=== PATIENT | male | born 1940 | race Two or more races ===

== ENCOUNTER 2025-02-06 18:04 | Emergency (ER) | payer MEDICARE, BC, SELFPAY ==
[2025-02-06 18:06] VITALS: BP 139/76; PULSE 60; RESP 18; TEMP 36.6; O2SAT 99
[2025-02-06 18:16] VITALS: PULSE 64; O2SAT 99; BMI 22.2
--- NOTE | 2025-02-06 18:58 | EKG_ITS ---
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
--- NOTE | 2025-02-06 18:58 | XR_ITS ---
Examination: PA chest single view TECHNIQUE: Upright PA chest single view Standing time: February 06, 2025 1909 hours INDICATIONS: Hypotension today FINDINGS: Mild to moderate enlargement left ventricle CABG Mild vascular congestion 12 mm pulmonary nodule left upper lobe No pneumonia or pulmonary edema IMPRESSION: Recommend CT chest without contrast follow-up to confirm 12 mm pulmonary nodule left upper lobe
--- NOTE | 2025-02-06 18:58 | XR_ITS ---
Examination: CT brain head without contrast. 2-D sagittal coronal reconstructions Date and time of exam:February 06, 2025 1917 hours INDICATIONS: Onset dizziness headache today low blood pressure, history diabetes, history stroke CTDI: vol (mGy):53.5 DLP: (mGycm):1086 Technique: Multiple CT axial sections of the brain have been obtained, 5 mm slice thickness. Contrast has not been administered. 2-D sagittal, coronal reconstructions have been obtained Low dose protocols were performed. One or more of the following dose reduction techniques were used; automated exposure control, adjustment of the mA and/or KV according to patient size, use of iterative reconstruction technique. Findings: No significant ventricular enlargement. 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 No mass effect or midline shift Basal cisterns are not remarkable. Fourth ventricle is midline. Cranial vault intact. Impression: Negative for acute hemorrhage, mass effect or midline shift As clinically warranted, brain MRI follow-up would best assess for acute ischemic change
--- NOTE | 2025-02-06 18:58 | XR_ITS ---
Examination: CT cervical spine without contrast 2-D sagittal reconstructions 2-D coronal reconstructions 3-D reconstructions. Exam date and time:February 06, 2025 1917 hours Comparison April 26, 2020 INDICATIONS: Sudden neck pain today CTDI:vol (mGy) 7.78 DLP: (mGycm) 197 Technique: Multiple 2 mm axial sections of the cervical spine have been obtained. The coronal and sagittal reconstructions have been obtained. 3-D reconstructions have been obtained. Low dose protocols were performed. One or more of the following dose reduction techniques were used; automated exposure control, adjustment of the mA and/or KV according to patient size, use of iterative reconstruction technique. Findings: Axial sections demonstrate intact base of the skull. C1 exhibit satisfactory relationship to the odontoid. No acute cervical vertebral body fracture seen. Alignment posterior spinous processes satisfactory. Moderate cervical spondylosis C3-C4 advanced right neural foraminal stenosis Impression: No acute cervical fracture. C3-C4 advanced right neural foraminal stenosis MRI cervical spine without contrast follow up would best assess acquired soft tissue spinal stenosis
--- NOTE | 2025-02-06 18:59 | EDRME_ITS ---
Rapid Medical Screening Exam RME Arrival date/time: 02/06/25 18:04 Chief Complaint: Weakness Vital signs: Vital Signs Temperature 97.9 F 02/06/25 18:06 Pulse Rate 60 02/06/25 18:06 Respiratory Rate 18 02/06/25 18:06 Blood Pressure 139/76 H 02/06/25 18:06 Pulse Oximetry (%) 99 02/06/25 18:06 Oxygen Delivery Method Room Air 02/06/25 18:06 RME Narrative: Patient sent from [facility] for hypotension (bps 80/40s and 60/40s in clinic). Patient woke up this morning c/o dizziness and neck pain. Daughter states he may be dehydrated from frequent BMs.
--- NOTE | 2025-02-06 19:21 | PD.EDWEAK ---
ED Weakness RME/HPI General Chief complaint: Weakness Stated complaint: WEAKNESS Source: patient, family and RN notes reviewed Arrival date/time: 02/06/25 18:04 Mode of arrival: EMS Limitations: no limitations RME / HPI RME / HPI Narrative: Patient sent from [facility] for hypotension (bps 80/40s and 60/40s in clinic). Patient woke up this morning c/o dizziness and neck pain. Daughter states he may be dehydrated from frequent BMs. DR. GOMEZ?S MAIN ED EVALUATION: 84-year-old male with history of Transient Ischemic Attacks (TIA), Myocardial Infarction, Atherosclerotic Heart Disease, Hypertension, Benign Prostatic Hyperplasia, Diabetes Mellitus Type 2, Coronary Artery Bypass Graft and Abdominal Surgery BIB daughter presenting to the emergency department via private auto from [facility] who is presenting for chief/stated complaint of hypotension, dizziness, head, back and neck pain x approximately 12 hours. Patient denies any other associated symptoms or medical complaints. - PMH: Transient Ischemic Attacks (TIA), Myocardial Infarction, Atherosclerotic Heart Disease, Hypertension, Benign Prostatic Hyperplasia, Diabetes Mellitus Type 2 - PSH: Coronary Artery Bypass Graft and Abdominal Surgery - Social history: N/A - Current medications: Reviewed PCP is Dr. Go's office ([facility]). Related Data Home Medications ?Medication ?Instructions ?Recorded ?Confirmed carvedilol 25 mg tablet (Coreg) 25 mg PO BID #0 tabs 11/13/14 02/08/18 finasteride 5 mg tablet (Proscar) 5 mg PO QDAY #0 tabs 11/13/14 02/08/18 metformin 500 mg tablet 500 mg PO TIDWM #0 tabs 11/13/14 02/08/18 (Glucophage) tamsulosin 0.4 mg capsule (Flomax) 0.8 mg PO QDAY ##0 11/13/14 02/08/18 valsartan 160 mg tablet (Diovan) 160 mg PO QPM #0 tabs 11/13/14 02/08/18 aspirin 81 mg tablet,delayed 81 mg PO QDAY ##0 07/07/16 02/08/18 release (Cordelia Low Dose Aspirin) atorvastatin 10 mg tablet (Lipitor) 10 mg PO HS #0 tabs 07/07/16 02/08/18 warfarin 4 mg tablet 4 mg PO QDAY 02/08/18 02/08/18 Previous Rx's ?Medication ?Instructions ?Recorded ondansetron HCl 4 mg tablet 4 mg PO Q6H #20 tabs 06/14/21 (Zofran) Allergies Allergy/AdvReac Type Severity Reaction Status Date / Time NKA* Allergy Uncoded 07/28/23 17:17 Review of Systems Review of Systems Systems Reviewed: All systems reviewed, normal except as documented Narrative Review of Systems: HEENT: Head pain CV: + Hypotension Musc/skel:+ Neck pain, + back pain Neuro: + Dizziness Past Medical History Past Medical History NEUROLOGIC: Positive Neurological Disorders and Transient Ischemic Attacks (TIA) CARDIAC: Positive Cardiac Disorders, Myocardial Infarction, Atherosclerotic Heart Disease and Hypertension GENITOURINARY: Positive Genitourinary Disorders and Benign Prostatic Hyperplasia ENDOCRINE: Positive Endocrine Disorders and Diabetes Mellitus Type 2 Family History FAMILY HISTORY: Positive Family Respiratory Disorders and Family Cardiac Disorders Surgical History SURGICAL: Positive Cardiac Surgery, Coronary Artery Bypass Graft and Abdominal Surgery ED Exam Narrative Physical exam: GENERAL: In general the patient is awake, interactive, in an emergency department gurney. No acute distress. The patient is calm and cooperative. Not agitated. HEAD/EYES/EARS/NOSE/THROAT: normo-cephalic, atraumatic, mucus membranes are moist. No cervical tenderness palpation midline. Supple neck. CARDIOVASCULAR: regular rate and regular rhythm, no murmurs, heart sounds are not distant, strong pulses in all four extremities that are equal and symmetric bilateral upper and lower extremities, normal capillary refill. CHEST/PULMONARY: normal chest rise and fall, good air movement, clear to auscultation bilaterally, normal inspiratory to expiratory ratios without evidence of respiratory distress. ABDOMEN: soft, not tender, no masses appreciated. BACK: normal range of motion without pain. NEUROLOGICAL: cranio-facial features are symmetric, moves all four extremities equally without obvious limitations or weakness. EXTREMITY no pedal edema. No cellulitis. SKIN: warm, dry, well-perfused, no jaundice, no rash. General Limitations: Present no limitations Course Course Course Narrative: Chest X-ray is ordered for determining etiology of diziness. Quality Measures none Orders Category Date Time Status EKG (ED ONLY) *Do not use* NOW Care 02/06/25 18:[address] cervical spine wo con Stat Exams 02/06/25 18:[address] head/brain wo con Stat Exams 02/06/25 18:58 Completed CXR [XR chest 1V] Stat Exams 02/06/25 18:58 Completed EKG (ED Only) Stat Exams 02/06/25 18:58 Draft CBC Stat Lab 02/06/25 19:16 Completed CMP [Comprehensive Metabolic Panel] Stat Lab 02/06/25 19:16 Completed Magnesium Stat Lab 02/06/25 19:16 Completed Troponin I Stat Lab 02/06/25 19:16 Completed UA [Urinalysis] Stat Lab 02/06/25 19:49 Completed Vital Signs Vital signs: Vital Signs Temperature 97.9 F 02/06/25 18:06 Pulse Rate 60 02/06/25 18:06 Respiratory Rate 18 02/06/25 18:06 Blood Pressure 139/76 H 02/06/25 18:06 Pulse Oximetry (%) 99 02/06/25 18:06 Oxygen Delivery Method Room Air 02/06/25 18:06 Procedures -ED EKG Interpretation #1: Date of EK02/06/25 Time of EK:04 Interpretation: Interpreted by me EKG Impression: Normal sinus rhythm Additional EKG comment: No S elevations. No depressions. QTc is normal at 419. Nonspecific ST-T wave change and T wave inversion in aVL. No ST elevation SC. Weakness MDM Narrative MDM Narrative:: Scribe Attestation: Natalie Fonseca am scribing for and in the presence of Dr. Gomez. Provider Notation: Although this document has been carefully reviewed, there may still be some phonetic and other typographical errors. These errors are purely grammatical due to imperfections in the software program and should not be construed in any way to compromise the substance of the patient's medical care during this visit. 84-year-old male with history of Transient Ischemic Attacks (TIA), Myocardial Infarction, Atherosclerotic Heart Disease, Hypertension, Benign Prostatic Hyperplasia, Diabetes Mellitus Type 2, Coronary Artery Bypass Graft and Abdominal Surgery BIB daughter presenting to the emergency department via private auto from [facility] who is presenting for chief/stated complaint of hypotension, dizziness, head, back and neck pain x approximately 12 hours. Patient while in the emergency department has no evidence of dehydration, urine is negative for UTI. His kidney function slightly elevated 1.5-1.9 however this can be followed up as an outpatient. The patient gets followed by Dr. Mckay every 2 weeks and has good follow-up. Patient made aware of the incidental lung nodule. The patient follow-up primary care in the next 6 to 12 months for a repeat x-ray and/or outpatient CAT scan. You are offered a CAT scan here but you have decided you would like to get that as an outpatient. Return precautions were given understood. We discussed the discharge instructions and all questions were asked by the family. Precautions given and understood. DDX: Medication side effects, UTI, Dehydration, Electrolyte Abnormality Patient data External records reviewed:: [facility] previous records (Prior ED records reviewed from 07/28/2023. Patient was seen for hypotension.) Clinical information provided by:: patient Social determinants that could affect healthcare access:: none Patient has the following chronic illnesses:: Transient Ischemic Attacks (TIA), Myocardial Infarction, Atherosclerotic Heart Disease, Hypertension, Benign Prostatic Hyperplasia, Diabetes Mellitus Type 2 How is presenting disease/condition affected by chronic disease/condition?: exacerbated by Evaluation data The following diagnostics were reviewed and interpreted by me:: lab results, radiology exam(s) and EKG tracing(s) (1904: 66 BPM, No S elevations. No depressions. QTc is normal at 419. Nonspecific ST-T wave change and T wave inversion in aVL. No ST elevation SC.) Lab and/or radiology exams considered but not ordered:: None Interpretation Summary: Chest X-Ray Findings: Mild to moderate enlargement left ventricle CABG Mild vascular congestion 12 mm pulmonary nodule left upper lobe No pneumonia or pulmonary edema Impression: Recommend CT chest without contrast follow-up to confirm 12 mm pulmonary nodule left upper lobe Cervical Spine CT Head CT Findings: No significant ventricular enlargement. 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 No mass effect or midline shift Basal cisterns are not remarkable. Fourth ventricle is midline. Cranial vault intact. Impression: Negative for acute hemorrhage, mass effect or midline shift As clinically warranted, brain MRI follow-up would best assess for acute ischemic change Cervical CT Findings: Axial sections demonstrate intact base of the skull. C1 exhibit satisfactory relationship to the odontoid. No acute cervical vertebral body fracture seen. Alignment posterior spinous processes satisfactory. Moderate cervical spondylosis C3-C4 advanced right neural foraminal stenosis Impression: No acute cervical fracture. C3-C4 advanced right neural foraminal stenosis MRI cervical spine without contrast follow up would best assess acquired soft tissue spinal stenosis Labs Hematology: RBC 3.35, Hgb 10.6, Hct 31.8%, RDW Std Dev 48.3, Plt Count 112, Immature granulocyte # 0.06, Immature granulocyte % 1%. Chemistry: BUN 34, Creatinine 1.9, Estimated Creatinine Clear Calc 29.4, eGFR 34, Glucose 190, Total bilirubin 1.8. Medications / Prescriptions Medications or Prescriptions considered but not ordered:: None Medication administrations:: See above if any Consultations Consultation(s) initiated? (list below): No Diagnosis Weakness Differential Diagnosis: other (Medication side effects, UTI, Dehydration, Electrolyte Abnormality) Most likely diagnosis given after review of the tests above:: Acute on chronic kidney infection Admission Indicated Admission indicated?: not indicated Explain why admission is indicated or not indicated:: No significant findings indicative of admission at this time. Admission Request Was there a request for admission?: No Disposition Plan Disposition Plan: Discharge Discharge Attestation Discharge Attestation: The patient and all family members were given an opportunity to ask questions and understood the discharge instructions. Discharge instructions specifically effects, indications for sooner follow up or return to the emergency department, and the expected course of current diagnosis. Patient condition: Stable Discharge Plan Plan Patient Disposition: HOME (Self Care) Patient condition on transfer: Stable Prescriptions/Referrals Prescriptions/Med Rec: No Action metformin [Glucophage] 500 MG tablet 500 mg PO TIDWM Qty: 0 carvedilol [Coreg] 25 MG tablet 25 mg PO BID Qty: 0 tamsulosin [Flomax] 0.4 MG capsule,extended release 24hr 0.8 mg PO QDAY Qty: 0 finasteride [Proscar] 5 MG tablet 5 mg PO QDAY Qty: 0 valsartan [Diovan] 160 MG tablet 160 mg PO QPM Qty: 0 atorvastatin [Lipitor] 10 MG tablet 10 mg PO HS Qty: 0 aspirin [Cordelia Low Dose Aspirin] 81 mg Tablet,Delayed Release (Dr/Ec) 81 mg PO QDAY Qty: 0 warfarin 4 mg Tablet 4 mg PO QDAY ondansetron HCl [Zofran] 4 mg tablet 4 mg PO Q6H Qty: 20 0RF Referrals: No Primary/Family,Physician [Primary Care Provider] - In 1 week Problem List Clinical Impression: Acute on chronic kidney failure Patient/Caregiver Discharge Instructions Education Materials: Acute Kidney Failure Dc, ED Pulmonary Nodule, Solitary Additional Instructions: DISCHARGE INSTRUCTIONS Today your kidney function is slightly elevated from 1.5-1.9. This is only a slight elevation and since the patient is eating and drinking I think he can follow-up with his primary care in the next 1 week to get a repeat kidney function level test. Return to emergency department for any worsening symptoms, or any other concerns. During your workup, there was an incidental finding of left upper lung nodule which you stated you were previously unaware of. It is unlikely that this finding is related to your presenting complaint. It is important that you follow-up with your primary care provider to further workup and discuss this finding. A copy of the pertinent findings has been included in your discharge paperwork for future reference of your primary care provider to aid in timely treatment if necessary. Even though you have been discharged from the Emergency Department, there are several things that you should do to ensure that you receive proper care: 1. DO READ your discharge instructions as these contain important information concerning your medical care. 2. If medication has been prescribed for your condition, fill the prescription as soon as possible and follow the directions on the medication. 3. RETURN AT ONCE TO THE EMERGENCY DEPARTMENT if you have any problems or concerns. These include but are not limited to fever, worsening pain(belly, chest, head, etc?), worsening shortness of breath, uncontrollable bleeding, inability to tolerate food and water, or any condition that makes you question your well-being. Also, if your symptoms do not improve in the next 12-24 hours, return to the ER or seek medical care immediately. 4. Be sure to follow up with your regular physician or specialist as instructed at discharge as this is the best way to ensure that you receive the very best of care. If you do not have a primary care physician, please contact a physician group and make an appointment. We would like to thank you for coming today and our hope is that we served you and your family well during your stay General Adult Discharge Instructions([place]er) Arturo walsh sido dado de niyah del Departamento de Emergencias sin embargo hay algunas cosas que debe hacer para asegurarse de que arturo continue recibiendo el cuidado adecuado. Por favor yasmeen las siguientes instrucciones con atenci?n: ? 1. Si es que le dieron alguna prescripci?n (medicamento), asegurese de ir a la farmacia de iqbal preferencia, llenar el medicamento y tomarlo conforme a las instrucciones. ? 2. Leas las instrucciones de niyah con mucho cuidado dado que contienen informaci?n importante para iqbal milan y cuidado. 3. REGRESE AL DEPARTAMENTO DE EMERGENCIA SI tiene alg?n tipo de problema o preocupaci?n. [place] incluye ewa no esta limitado a fiebre, mucho dolor abdominal, dolor de pecho, mucho dolor de roxanne, falta de aire, sangrado incontrolable, nauseas o vomitos incontrolables, inhabilidad de tolerar alimentos, o cualquier otro tipo de condici?n que le flor cuestionar iqbal milan. 4. Asegurese de seguir con iqbal medico primario (tambien llamado medico de erinn) o con el medico especialista que le indicaron al momento del niyah en 3 a 5 villalobos dado que esta es la mejor manera de asegurar que matt recibiendo el mejor cuidado medico. ? 5. Si es que tiene un telefono inteligente (smartphone) revise la pagina web o aplicaci?n GoodRx antes de pagar por [place] prescripciones (medicinas) dado que asi podr?a encontrar un cup?n para que [place]ale medicinas jennifer menos costosas. El servicio es gratuito. ? Le agradecemos iqbal visita el geraldine de hoy y esperamos que iqbal milan mejore. Print Language: [place] Stand Alone Forms: Mary Award Info., Patient Portal Info Letter
[2025-02-06 19:29] LABS: Basophils % (Auto) 0 % (0-2.5); Eosinophils # (Auto) 0.2 Thou/mm3 (0.0-0.5); Eosinophils % (Auto) 3 % (0-10); Hematocrit 31.8 % (41.0-53.0); Hemoglobin 10.6 g/dL (13.5-16.0); Immature Granulocytes % (Auto) 1 % (0-0); Immature Granulocytes Auto 0.06 Thou/mm3 (0.00-0.00); Lymphocytes # (Auto) 1.6 Thou/mm3 (1.0-4.8); Lymphocytes % (Auto) 19 % (10-50); Mean Corpuscular HGB Conc 33.3 g/dl (31.0-37.0); Mean Corpuscular Hemoglobin 31.6 pg (25.0-35.0); Mean Corpuscular Volume 95 fL (80-100); Monocytes # (Auto) 0.8 Thou/mm3 (0.0-0.8); Monocytes % (Auto) 9 % (0-12); Neutrophils # (Auto) 5.9 Thou/mm3 (1.8-7.7); Neutrophils % (Auto) 68 % (37-80); Nucleated Red Blood Cell % 0 /100 WBC (0); Platelet Count 112 Thou/mm3 (140-440); RDW Standard Deviation 48.3 fL (35.1-43.9); Red Blood Count 3.35 Miln/mm3 (4.50-5.90); White Blood Count 8.6 Thou/mm3 (3.8-10.6)
[2025-02-06 19:58] LABS: Collection Type, Urine Clean Catch
[2025-02-06 20:00] LABS: Alanine Aminotransferase 19 U/L (10-49); Albumin, Serum 4.2 gm/dL (3.4-4.8); Albumin/Globulin Ratio 1.6 (1.2-2.2); Alkaline Phosphatase 51 U/L (46-116); Anion Gap 10 (7-16); Aspartate Amino Transferase 22 U/L (0-34); BUN/Creatinine Ratio 18 Ratio (12-20); Bilirubin,Total 1.8 mg/dL (0.3-1.2); Blood Urea Nitrogen 34 mg/dL (9-23); Calcium 8.7 mg/dL (8.3-10.6); Calcium (Corrected) 8.7 mg/dL (8.5-10.1); Carbon Dioxide 26.1 mMol/L (20.0-31.0); Chloride 105 mMol/L (98-107); Creatinine (Component) 1.9 mg/dL (0.6-1.3); Estimated Creatinine Clearance 29.4 mL/min (>60); Globulin 2.6 gm/dL (2.3-3.5); Glucose 190 mg/dL (74-106); Magnesium 1.9 mg/dL (1.6-2.6); Osmolality,Calculated 293 (275-295); Potassium 4.5 mMol/L (3.4-5.1); Sodium 141 mMol/L (136-145); Total Protein 6.8 gm/dL (5.7-8.2); Troponin I < 0.020 ng/mL (0.0-0.045); eGFR 34 See Note
[2025-02-06 20:01] LABS: Bilirubin,Urine Negative (Negative); Blood,Urine Negative (Negative); Clarity,Urine Clear (Clear/Hazy); Color,Urine Yellow (Lt Yel-Yel); Glucose, Urine Negative (Negative); Hyaline Casts,Urine 1 /hpf (0-1); Ketones,Urine Negative (Negative); Leukocyte Esterase,Urine Negative (Negative); Nitrite,Urine Negative (Negative); PH,Urine 5.5 (5.0-7.0); Protein,Urine Negative (Neg - Trace); RBC,Urine 2 /hpf (0-3); Specific Gravity,Urine 1.019 (1.001-1.035); Squamous Epithelial Cell,Urine 1 /hpf (0-5); Urobilinogen,Urine Negative mg/dL (0.0-1.0); WBC,Urine 2 /hpf (0-5)
[2025-02-06 22:24] VITALS: BP 183/94; PULSE 74; RESP 17; TEMP 36.4; O2SAT 99
[2025-02-07 00:03] VITALS: BP 165/99; PULSE 72; RESP 18; TEMP 36.7; O2SAT 98
[2025-02-07 01:13] VITALS: BP 177/92; PULSE 78; RESP 19; O2SAT 98
== END 2025-02-07 01:20 | disposition home or self-care (01) ==
PROVIDERS: Physician Assistant; Emergency Provider Emergency Medicine
DX: N17.9 Acute kidney failure, unspecified (principal); E11.22 Type 2 diabetes mellitus with diabetic chronic kidney disease; I12.9 Hypertensive chronic kidney disease with stage 1 through stage 4 chronic kidney disease, or unspecified chronic kidney disease; N18.9 Chronic kidney disease, unspecified; I25.2 Old myocardial infarction; I25.10 Atherosclerotic heart disease of native coronary artery without angina pectoris; N40.0 Benign prostatic hyperplasia without lower urinary tract symptoms; Z95.1 Presence of aortocoronary bypass graft; Z86.73 Personal history of transient ischemic attack (TIA), and cerebral infarction without residual deficits
CPT/HCPCS: 36415; 70450; 71045; 72125; 80053; 81001; 83735; 84484; 85025; 93005; 99284

== ENCOUNTER → 2025-02-19 | Outpatient (CLI) | payer MEDICARE, BC, SELFPAY ==
[2025-02-19 16:01] LABS: Albumin, Serum 4.3 gm/dL (3.4-4.8); Anion Gap 11 (7-16); BUN/Creatinine Ratio 20 Ratio (12-20); Blood Urea Nitrogen 30 mg/dL (9-23); Calcium 8.7 mg/dL (8.3-10.6); Calcium (Corrected) 8.7 mg/dL (8.5-10.1); Carbon Dioxide 26.1 mMol/L (20.0-31.0); Chloride 106 mMol/L (98-107); Creatinine (Component) 1.5 mg/dL (0.6-1.3); Glucose 176 mg/dL (74-106); Osmolality,Calculated 295 (275-295); Phosphorous 2.5 mg/dL (2.4-5.1); Potassium 4.5 mMol/L (3.4-5.1); Sodium 143 mMol/L (136-145); eGFR 45 See Note
== END | disposition home or self-care (01) ==
LOC: COPL 14:12
PROVIDERS: PCP Family Medicine; Referring Provider Internal Medicine Cardiovascular Disease; Visit Provider Internal Medicine Cardiovascular Disease
DX: I50.22 Chronic systolic (congestive) heart failure (principal)
CPT/HCPCS: 36415; 80069

== ENCOUNTER → 2025-04-09 | Outpatient (CLI) | payer MEDICARE, BC, SELFPAY ==
[2025-04-09 09:52] LABS: Collection Type, Urine Clean Catch
[2025-04-09 10:21] LABS: Bilirubin,Urine Negative (Negative); Blood,Urine Negative (Negative); Clarity,Urine Clear (Clear/Hazy); Color,Urine Yellow (Lt Yel-Yel); Glucose, Urine Negative (Negative); Hyaline Casts,Urine 1 /hpf (0-1); Ketones,Urine Negative (Negative); Leukocyte Esterase,Urine Negative (Negative); Nitrite,Urine Negative (Negative); PH,Urine 5.5 (5.0-7.0); Protein,Urine Trace (Neg - Trace); RBC,Urine 4 /hpf (0-3); Specific Gravity,Urine 1.023 (1.001-1.035); Squamous Epithelial Cell,Urine 2 /hpf (0-5); WBC,Urine 7 /hpf (0-5)
[2025-04-09 10:23] LABS: Basophils % (Auto) 1 % (0-2.5); Eosinophils # (Auto) 0.2 Thou/mm3 (0.0-0.5); Eosinophils % (Auto) 3 % (0-10); Hematocrit 32.7 % (41.0-53.0); Immature Granulocytes % (Auto) 1 % (0-0); Immature Granulocytes Auto 0.04 Thou/mm3 (0.00-0.00); Lymphocytes # (Auto) 1.6 Thou/mm3 (1.0-4.8); Lymphocytes % (Auto) 21 % (10-50); Mean Corpuscular HGB Conc 33.6 g/dl (31.0-37.0); Mean Corpuscular Volume 95 fL (80-100); Monocytes # (Auto) 0.6 Thou/mm3 (0.0-0.8); Monocytes % (Auto) 8 % (0-12); Neutrophils # (Auto) 5.2 Thou/mm3 (1.8-7.7); Neutrophils % (Auto) 68 % (37-80); Nucleated Red Blood Cell % 0 /100 WBC (0); Platelet Count 118 Thou/mm3 (140-440); RDW Standard Deviation 49.1 fL (35.1-43.9); Red Blood Count 3.44 Miln/mm3 (4.50-5.90); White Blood Count 7.7 Thou/mm3 (3.8-10.6)
[2025-04-09 10:30] LABS: Protein Total, Random Urine 39 mg/dL (1-14)
[2025-04-09 10:38] LABS: Albumin, Serum 4.1 gm/dL (3.4-4.8); Anion Gap 9 (7-16); BUN/Creatinine Ratio 18 Ratio (12-20); Blood Urea Nitrogen 25 mg/dL (9-23); Calcium 9.5 mg/dL (8.3-10.6); Calcium (Corrected) 9.5 mg/dL (8.5-10.1); Carbon Dioxide 26.1 mMol/L (20.0-31.0); Chloride 106 mMol/L (98-107); Creatinine (Component) 1.4 mg/dL (0.6-1.3); Glucose 144 mg/dL (74-106); Osmolality,Calculated 288 (275-295); Phosphorous 2.7 mg/dL (2.4-5.1); Sodium 141 mMol/L (136-145); eGFR 49 See Note
[2025-04-09 10:40] LABS: Vitamin D 25 Hydroxy Total 32.1 ng/mL (7.3-40.2)
[2025-04-09 10:44] LABS: Creatinine,Random Urine 291 mg/dL (30-125)
== END | disposition home or self-care (01) ==
LOC: COPL 08:55
PROVIDERS: PCP Family Medicine; Referring Provider Internal Medicine; Visit Provider Internal Medicine
DX: I12.9 Hypertensive chronic kidney disease with stage 1 through stage 4 chronic kidney disease, or unspecified chronic kidney disease (principal); E11.22 Type 2 diabetes mellitus with diabetic chronic kidney disease; N18.31 Chronic kidney disease, stage 3a
CPT/HCPCS: 36415; 80069; 81001; 82306; 82570; 84156; 85025

== ENCOUNTER 2025-06-22 13:36 | Emergency (ER) | payer MEDICARE, BC, SELFPAY ==
[2025-06-22 13:38] VITALS: BMI 20.3
[2025-06-22 13:51] VITALS: BP 176/95; PULSE 83; RESP 17; TEMP 36.6; O2SAT 100
--- NOTE | 2025-06-22 14:13 | XR_ITS ---
Examination: Left knee 4 views TECHNIQUE: AP oblique lateral axial left knee 4 views Date and time: June 22, 2025 1436 hours INDICATIONS: Patient fell today with into the knee, knee pain. FINDINGS: Advanced tricompartment osteoarthritis No fracture or patellar dislocation IMPRESSION: No fracture or dislocation
--- NOTE | 2025-06-22 14:13 | XR_ITS ---
Examination: CT brain head without contrast. 2-D sagittal coronal reconstructions Date and time of exam:June 22, 2025, 1506 hours, comparison February 06, 2025 INDICATIONS: Ground-level fall, injury to the head, head pain CTDI: vol (mGy):53.9 DLP: (mGycm):1207 Technique: Multiple CT axial sections of the brain have been obtained, 5 mm slice thickness. Contrast has not been administered. 2-D sagittal, coronal reconstructions have been obtained Low dose protocols were performed. One or more of the following dose reduction techniques were used; automated exposure control, adjustment of the mA and/or KV according to patient size, use of iterative reconstruction technique. Findings: No significant ventricular enlargement. Stable left occipital lobe encephalomalacia Intra-axial or extra-axial hemorrhage density is not seen. No mass effect or midline shift Basal cisterns are not remarkable. Fourth ventricle is midline. Cranial vault intact. Impression: Negative for acute hemorrhage, mass effect or midline shift
--- NOTE | 2025-06-22 14:20 | EDNOTE_ITS ---
ED Fall Injury RME/HPI General Chief Complaint: Fall Stated Complaint: FELL AND HIT RIGHT SIDE OF FACE AND LEFT KNEE Time Seen by Provider: 06/22/25 14:13 Arrival date/time: 06/22/25 13:36 Limitations: no limitations RME / HPI RME / HPI Narrative: 84 year old male with history of TIA, [place], atrial fibrillation on Coumadin, hypertension, diabetes, BPH presents to the ED for evaluation after fall occurring shortly before arrival. Daughter reports they were at a family member burial. States as the patient began walking away from the casket, he lost his footing and fell. Striking the right side of face and left knee. Daughter reports she washed the abrasion with water and brought here for further evaluation. In the ED, patient has no complaints noting I feel fine . Related Data Home Medications ?Medication ?Instructions ?Recorded ?Confirmed carvedilol 25 mg tablet (Coreg) 25 mg PO BID #0 tabs 0 11/13/14 02/08/18 finasteride 5 mg tablet (Proscar) 5 mg PO QDAY #0 tabs 11/13/14 02/08/18 metformin 500 mg tablet 500 mg PO TIDWM #0 tabs 02/0 12/2302/08/18 (Glucophage) tamsulosin 0.4 mg capsule (Flomax) 0.8 mg PO QDAY ##0 11/13/14 02/08/18 valsartan 160 mg tablet (Diovan) 160 mg PO QPM #0 tabs 11/13/14 02/08/18 aspirin 81 mg tablet,delayed 81 mg PO QDAY ##0 6 02/08/18 release (Cordelia Low Dose Aspirin) atorvastatin 10 mg tablet (Lipitor) 10 mg PO HS #0 tab s 07/07/16 02/08/18 warfarin 4 mg tablet 4 mg PO QDAY 02/08/18 Previous Rx's ?Medication ?Instructions ?Recorded ondansetron HCl 4 mg tablet 4 mg PO Q6H #20 tabs 06/14 (Zofran) Allergies Allergy/AdvReac Type Severity Reaction Status Date / Time No Known Allergies Allergy Verified 06/22/25 13:38 Review of Systems Review of Systems Systems Reviewed: All systems reviewed, normal except as documented Past Medical History Past Medical History NEUROLOGIC: Positive Neurological Disorders and Transient Ischemic Attacks (TIA) CARDIAC: Positive Cardiac Disorders, Myocardial Infarction, Atrial Fibrillation, Atherosclerotic Heart Disease, Hypercholesterolemia and Hypertension GENITOURINARY: Positive Genitourinary Disorders and Benign Prostatic Hyperplasia ENT: Positive Deafness ENDOCRINE: Positive Endocrine Disorders and Diabetes Mellitus Type 2 Family History FAMILY HISTORY: Positive Family Respiratory Disorders and Family Cardiac Disorders Surgical History SURGICAL: Positive Cardiac Surgery, Coronary Artery Bypass Graft and Abdominal Surgery Social History SMOKING STATUS: Never smoker ED Exam General Limitations: Present no limitations General appearance: Present alert and in no apparent distress Head Head exam: Present other (Abrasion on the right face, no bony tenderness) Eye Eye exam: Present normal appearance, PERRL and EOMI ENT ENT exam: Present normal exam, normal oropharynx and mucous membranes moist Neck Neck exam: Present normal inspection, full ROM and trachea midline Chest Chest inspection: Present normal inspection and symmetric chest wall rise Respiratory Respiratory exam: Present normal lung sounds bilaterally Cardiovascular Cardiovascular exam: Present regular rate, normal rhythm and normal heart sounds Abdominal Exam Abdominal exam: Present soft and normal bowel sounds Extremities Exam Extremities exam: Present full ROM and other (Left knee with edema and ecchymosis, no bony tenderness, no tibial plate tenderness) Back Exam Back exam: Present normal inspection and full ROM Neurological Exam Neurological exam: Present alert, oriented X3 and CN II-XII intact Psychiatric Psychiatric exam: Present normal affect and normal mood Skin Skin exam: Present warm, dry, intact and normal color Course Quality Measures none Orders Category Date Time Status CT head/brain wo con Stat Exams 06/22/25 14:13 Completed XR knee comp LT 4V Stat Exams 06/22/25 14:13 Completed CBC [CBC] Stat Lab 06/22/25 16:12 Completed Partial Thromboplastin Time Stat Lab 06/22/25 16:12 Completed Prothrombin Time with INR Stat Lab 06/22/25 16:12 Completed Acetaminophen Tab [Tylenol Tab] Med 06/22/25 14:18 Discontinued 650 mg PO X1 ONE Vital Signs Vital signs: Vital Signs Temperature 97.9 F 06/22/25 13:51 Pulse Rate 83 06/22/25 13:51 Respiratory Rate 17 06/22/25 13:51 Blood Pressure 176/95 H 06/22/25 13:51 Pulse Oximetry (%) 100 06/22/25 13:51 Oxygen Delivery Method Room Air 06/22/25 13:51 Pulse ox is 100% on room air which is adequate. Fall MDM Narrative MDM Narrative:: I Maral Shaye, am scribing for and in the presence of Dr. Koch. Patient data External records reviewed:: [facility] previous records (I reviewed ED visit on 02/06/2025 ) Clinical information provided by:: patient and family Social determinants that could affect healthcare access:: none Patient has the following chronic illnesses:: TIA, AK, atrial fibrillation on Coumadin, hypertension, diabetes, BPH How is presenting disease/condition affected by chronic disease/condition?: exacerbated by Evaluation data The following diagnostics were reviewed and interpreted by me:: lab results and radiology exam(s) Lab and/or radiology exams considered but not ordered:: None Interpretation Summary: Ordering Physician: Maikel Koch MD Date of Service: 06/22/25 Procedure(s): CT head/brain wo con Accession Number(s): [id number] cc: Maikel Koch MD; Jadiel Pickett MD; Audi Bain MD~ Examination: CT brain head without contrast. 2-D sagittal coronal reconstructions Date and time of exam:June 22, 2025, 1506 hours, comparison February 06, 2025 INDICATIONS: Ground-level fall, injury to the head, head pain CTDI: vol (mGy):53.9 DLP: (mGycm):1207 Technique: Multiple CT axial sections of the brain have been obtained, 5 mm slice thickness. Contrast has not been administered. 2-D sagittal, coronal reconstructions have been obtained Low dose protocols were performed. One or more of the following dose reduction techniques were used; automated exposure control, adjustment of the mA and/or KV according to patient size, use of iterative reconstruction technique. Findings: No significant ventricular enlargement. Stable left occipital lobe encephalomalacia Intra-axial or extra-axial hemorrhage density is not seen. No mass effect or midline shift Basal cisterns are not remarkable. Fourth ventricle is midline. Cranial vault intact. Impression: Negative for acute hemorrhage, mass effect or midline shift Dictated By: Jadiel Pickett MD Signed By: <Electronically signed by Jadiel Pickett MD in OV> 06/22/25 1525 Ordering Physician: Maikel Koch MD Date of Service: 06/22/25 Procedure(s): XR knee comp LT 4V Accession Number(s): [id number] cc: Maikel Koch MD; Jadiel Pickett MD; Audi Bain MD~ Examination: Left knee 4 views TECHNIQUE: AP oblique lateral axial left knee 4 views Date and time: June 22, 2025 1436 hours INDICATIONS: Patient fell today with into the knee, knee pain. FINDINGS: Advanced tricompartment osteoarthritis No fracture or patellar dislocation IMPRESSION: No fracture or dislocation Dictated By: Jadiel Pickett MD Signed By: <Electronically signed by Jadiel Pickett MD in [place]> 06/22/25 1505 Medications / Prescriptions Medications or Prescriptions considered but not ordered:: None Medication administrations:: Medication Administration History Discontinued Medications Acetaminophen (Acetaminophen 325 Mg Tablet) 650 mg PO X1 ONE Stop: 06/22/25 14:19 Last Admin: 06/22/25 14:37 Dose: 650 mg Documented By: VL See above Consultations Consultation(s) initiated? (list below): No Diagnosis Fall Differential Diagnosis: syncope and other (fall, abrasion, laceration, ICH) Most likely diagnosis given after review of the tests above:: Fall Admission Indicated Admission indicated?: not indicated Admission Request Was there a request for admission?: No Disposition Plan Disposition Plan: Discharge Discharge Attestation Discharge Attestation: The patient and all family members were given an opportunity to ask questions and understood the discharge instructions. Discharge instructions specifically effects, indications for sooner follow up or return to the emergency department, and the expected course of current diagnosis. Patient condition: Stable Discharge Plan Plan Patient Disposition: HOME (Self Care) Prescriptions/Referrals Prescriptions/Med Rec: No Action metformin [Glucophage] 500 MG tablet 500 mg PO TIDWM Qty: 0 carvedilol [Coreg] 25 MG tablet 25 mg PO BID Qty: 0 tamsulosin [Flomax] 0.4 MG capsule,extended release 24hr 0.8 mg PO QDAY Qty: 0 finasteride [Proscar] 5 MG tablet 5 mg PO QDAY Qty: 0 valsartan [Diovan] 160 MG tablet 160 mg PO QPM Qty: 0 atorvastatin [Lipitor] 10 MG tablet 10 mg PO HS Qty: 0 aspirin [Cordelia Low Dose Aspirin] 81 mg Tablet,Delayed Release (Dr/Ec) 81 mg PO QDAY Qty: 0 warfarin 4 mg Tablet 4 mg PO QDAY ondansetron HCl [Zofran] 4 mg tablet 4 mg PO Q6H Qty: 20 0RF Referrals: Audi Bain MD [Primary Care Provider, Family Practice] - In 1 week Problem List Clinical Impression: Fall, Abrasion of face, Left knee pain, Prothrombin time increased due to coumadin Patient/Caregiver Discharge Instructions Education Materials: ED Abrasions, ED Fall with Uncertain Cause, ED Knee Pain of Uncertain Cause Additional Instructions: Hold your Coumadin for 2 days and have your PT/PTT rechecked on Wednesday. You can return to the emergency department sooner if symptoms worsen or if you notice any new, concerning issues. Print Language: Bulgarian Stand Alone Forms: Mary Award Info., Patient Portal Info Letter
[2025-06-22] MEDS: ACETAMINOPHEN 325 MG TABLET 650 MG PO (14:37)
[2025-06-22 16:35] LABS: Basophils # (Auto) 0.0 Thou/mm3 (0.0-0.2); Basophils % (Auto) 0 % (0-2.5); Eosinophils # (Auto) 0.2 Thou/mm3 (0.0-0.5); Eosinophils % (Auto) 2 % (0-10); Hematocrit 33.8 % (41.0-53.0); Hemoglobin 10.9 g/dL (13.5-16.0); Immature Granulocytes Auto 0.03 Thou/mm3 (0.00-0.00); Lymphocytes # (Auto) 1.5 Thou/mm3 (1.0-4.8); Lymphocytes % (Auto) 20 % (10-50); Mean Corpuscular HGB Conc 32.2 g/dl (31.0-37.0); Mean Corpuscular Hemoglobin 31.4 pg (25.0-35.0); Mean Corpuscular Volume 97 fL (80-100); Monocytes # (Auto) 0.7 Thou/mm3 (0.0-0.8); Monocytes % (Auto) 9 % (0-12); Neutrophils # (Auto) 5.4 Thou/mm3 (1.8-7.7); Neutrophils % (Auto) 69 % (37-80); Nucleated Red Blood Cell # 0.00 Thou/mm3 (0.00-0.00); Nucleated Red Blood Cell % 0 /100 WBC (0); Platelet Count 109 Thou/mm3 (140-440); RDW Standard Deviation 46.9 fL (35.1-43.9); Red Blood Count 3.47 Miln/mm3 (4.50-5.90); White Blood Count 7.8 Thou/mm3 (3.8-10.6)
[2025-06-22 16:55] LABS: INR 3.8 (0.9-1.3); Partial Thromboplastin Time 33.6 Seconds (22.0-36.0)
[2025-06-22 17:02] VITALS: BP 179/84; PULSE 68; RESP 19; TEMP 36.5; O2SAT 100
[2025-06-22 17:34] LABS: Prothrombin Time 38.2 Seconds (9.0-12.2)
== END 2025-06-22 17:58 | disposition home or self-care (01) ==
PROVIDERS: Emergency Provider Family Medicine; PCP Family Medicine
DX: S00.81XA Abrasion of other part of head, initial encounter (principal); S89.92XA Unspecified injury of left lower leg, initial encounter; R79.1 Abnormal coagulation profile; T45.515A Adverse effect of anticoagulants, initial encounter; W01.0XXA Fall on same level from slipping, tripping and stumbling without subsequent striking against object, initial encounter
CPT/HCPCS: 36415; 70450; 73564; 85025; 85610; 85730; 99284; A9270

== ENCOUNTER → 2025-07-10 | Outpatient (CLI) | payer MEDICARE, BC, SELFPAY ==
--- NOTE | 2025-07-10 14:29 | XR_ITS ---
Examination: Left knee 2 views Technique one AP lateral left knee 2 views Date and time: July 10, 2025 1431 hours, comparison 06/22/2025 INDICATIONS: Patient fell 3 weeks ago with injury of the knee, knee pain. FINDINGS: Severe osteopenia Advanced tricompartment osteoarthritis No acute fracture IMPRESSION: No acute fracture
== END | disposition home or self-care (01) ==
PROVIDERS: PCP Family Medicine; Referring Provider Registered Nurse; Visit Provider Registered Nurse
DX: S89.92XA Unspecified injury of left lower leg, initial encounter (principal); W19.XXXA Unspecified fall, initial encounter
CPT/HCPCS: 73560

== ENCOUNTER → 2025-08-22 | Outpatient (CLI) | payer MEDICARE, BC, SELFPAY ==
[2025-08-22 16:26] LABS: Basophils # (Auto) 0.0 Thou/mm3 (0.0-0.2); Basophils % (Auto) 0 % (0-2.5); Eosinophils # (Auto) 0.1 Thou/mm3 (0.0-0.5); Eosinophils % (Auto) 1 % (0-10); Hematocrit 34.5 % (41.0-53.0); Hemoglobin 11.2 g/dL (13.5-16.0); Immature Granulocytes Auto 0.03 Thou/mm3 (0.00-0.00); Lymphocytes # (Auto) 1.4 Thou/mm3 (1.0-4.8); Lymphocytes % (Auto) 18 % (10-50); Mean Corpuscular HGB Conc 32.5 g/dl (31.0-37.0); Mean Corpuscular Hemoglobin 31.6 pg (25.0-35.0); Mean Corpuscular Volume 98 fL (80-100); Monocytes # (Auto) 0.7 Thou/mm3 (0.0-0.8); Monocytes % (Auto) 9 % (0-12); Neutrophils # (Auto) 5.8 Thou/mm3 (1.8-7.7); Neutrophils % (Auto) 72 % (37-80); Nucleated Red Blood Cell # 0.00 Thou/mm3 (0.00-0.00); Nucleated Red Blood Cell % 0 /100 WBC (0); Platelet Count 99 Thou/mm3 (140-440); RDW Standard Deviation 50.1 fL (35.1-43.9); Red Blood Count 3.54 Miln/mm3 (4.50-5.90); White Blood Count 8.1 Thou/mm3 (3.8-10.6)
[2025-08-22 16:41] LABS: Albumin, Serum 4.2 gm/dL (3.4-4.8); Anion Gap 7 (7-16); BUN/Creatinine Ratio 21 Ratio (12-20); Blood Urea Nitrogen 37 mg/dL (9-23); Calcium 8.7 mg/dL (8.3-10.6); Calcium (Corrected) 8.7 mg/dL (8.5-10.1); Carbon Dioxide 26.6 mMol/L (20.0-31.0); Chloride 106 mMol/L (98-107); Creatinine (Component) 1.8 mg/dL (0.6-1.3); Glucose 122 mg/dL (74-106); Osmolality,Calculated 289 (275-295); Phosphorous 2.6 mg/dL (2.4-5.1); Potassium 4.6 mMol/L (3.4-5.1); Sodium 140 mMol/L (136-145); eGFR 36 See Note
[2025-08-22 16:57] LABS: Iron 99 mcg/dL (65-175); Percent Iron Saturation 35 % (20-55); Total Iron Binding Capacity 280 mcg/dL (250-425); Unsaturated Iron Binding 181 (225-295); Vitamin B12 324 pg/mL (211-911); Vitamin D 25 Hydroxy Total 21.7 ng/mL (7.3-40.2)
[2025-08-22 17:38] LABS: Creatinine,Random Urine 76 mg/dL (30-125); Protein Total, Random Urine 14 mg/dL (1-14)
== END | disposition home or self-care (01) ==
PROVIDERS: PCP Family Medicine; Referring Provider Internal Medicine; Visit Provider Internal Medicine
DX: I12.9 Hypertensive chronic kidney disease with stage 1 through stage 4 chronic kidney disease, or unspecified chronic kidney disease (principal); N18.31 Chronic kidney disease, stage 3a; E11.22 Type 2 diabetes mellitus with diabetic chronic kidney disease
CPT/HCPCS: 36415; 80069; 82306; 82570; 82607; 83540; 83550; 84156; 85025